=== PATIENT | male | born 1930 | race Caucasian/White ===

== ENCOUNTER 2016-11-18 11:26 | Inpatient (IN) | payer OTHER ==
[~2016-11-18] VITALS: Ht 190.5 cm; Wt 112.8 kg
--- NOTE | ~2016-11-18 | S ---
[facility] [place] [address] SURGICAL PATH RPT PROCEDURE Name: MARIO HOOVER Room #: 203-P ADM IN M.R.#: [id number] Admission: 11/18/16 Date of : 32 Discharge: Report #: [id number] Path Case #: [id number] PATHOLOGY REPORT COLLECTION DATE: 11/23/2016 RECEIVED DATE: 11/23/2016 SUBMITTING PHYS: Dr. Matt Weaver OTHER PHYS: Dr. Deepak Jacobson SPECIMEN(S) RECEIVED: A.Tissue from decubitus ulcer - sacral wound * * * * * * * * * * * * FINAL DIAGNOSIS: Tissue from left buttock decubitus ulcer sacral wound, debridement: - Ulceration as well as gangrenous necrosis of skin. - Marked acute inflammation extending into underlying subcutaneous tissue associated with necrosis. (IUV:csd; d/t: 11/24/2016) PATHOLOGIST: Neisha Cordova M.D. REPORT ELECTRONICALLY SIGNED BY: Neisha Cordova M.D. DATE/TIME: 11/24/2016 15:36 * * * * * * * * * * * * GROSS PATHOLOGY: The specimen is received in formalin, labeled "Mario Hoover and tissue from L buttock decubitus." Received is a 14.3 x 7.7 x 2.8 cm aggregate of blood-tinged, pink-delgadillo to delgadillo-brown, lobulated, and necrotic appearing adipose soft tissue. The largest piece displays an 8.2 x 6.7 cm overlying skin ellipse and a 3.5 x 2.7 cm red-delgadillo ulcer-like lesion. Car Starter sections to include the skin and ulcer-like lesion are submitted cassette A1. (TTL; 11/23/2016) CLINICAL HISTORY: Sacral wound INITIAL CPT CODE(S): A; 46546 Professional services performed by [facility] at [facility] [address] [facility] [place] [address] Technical services performed by [facility] at [address] [place] [address] [address] [place] [address] SURGICAL PATH RPT PROCEDURE Name: MARIO HOVOER Room #: 203-P ADM IN M.R.#: [id number] Admission: 11/18/16 Date of : 31 Discharge: Report #: [id number] Path Case #: [id number] [place] [address]. [facility] [address] [place] [address] PHONE: [phone] DIRECTOR: Po Beach M.D. * * * END OF REPORT * * *
--- NOTE | ~2016-11-18 | H ---
[facility] [place] [address] HISTORY AND PHYSICAL Name: HOOVERMARIO Room #: 203-P ADM IN M.R.#: [id number] Admission: 11/18/16 Attend Phys: Deepak Jacobson MD Discharge: Date of : 31 Report #: [id number] THIS REPORT FOR: //name// CC: OSEI physician/PCP Deepak Jacobson DATE OF SERVICE: 11/18/2016 CHIEF COMPLAINT: Persistent pneumothorax. HISTORY OF PRESENT ILLNESS: He is an 86-year-old male transferred from [facility]. The patient was admitted there initially a few days ago, he had an episode of fall and came to the Emergency Room and admitted. He had an abscess which was I and D'd by General Surgery at the [facility] on the left buttock area and had a wound in there and he also has known history of congestive heart failure, EF is 40-45%. Was diuresed during this hospitalization at the [facility]. He had a thoracentesis which is complicated by pneumothorax, had a chest tube placed on the left side. He continued to have a persistent pneumothorax. They did not have any cardiothoracic surgery available there, so the patient was transferred to [facility]. I have reviewed the record from [facility]. He had multiple cardiac issues, but no cancer nor anything of that. PAST MEDICAL HISTORY: Known history of CHF. His known EF is 40-45%. He had permanent AFib, contusion of the left hip, had a fall, pleural effusion due to CHF and had weakness, generalized and CHF, known history of EF 40-45%, hypertension versus pneumothorax now. He had a significant congestive heart failure, pleural effusion, thoracentesis in the past. Question of occlusive coronary artery disease. He had a history of permanent AFib, no CVA and had a history of pacemaker. SOCIAL HISTORY: He denies smoking, alcohol or drugs. FAMILY HISTORY: His daughter is by the bedside. He came from [place]. Denied any significant family history. SOCIAL HISTORY: Never smoker, no alcohol, no drugs or anything of that. REVIEW OF SYSTEMS: Currently, he denied any chest pain, shortness of breath. He is on a room air, sat has been like 92%. He is very weak, but no change in mental status. No fever. Chest x-ray, the last one was could not really get that information on this big stack of papers, but does report he has a persistent pneumothorax and had a chest tube in place on the left side. LABORATORY DATA: The last one was 11/08/2016 documented H and H 11.2 and 35.1, platelets 176. Sodium 143, potassium 4.3, chloride 105, bicarbonate 34, [address] [address] HISTORY AND PHYSICAL Name: MARIO HOOVER Room #: 203-P [facility] IN M.R.#: [id number] Admission: 11/18/16 Attend Phys: Deepak Jacobson MD Discharge: Date of : 31 Report #: [id number] BUN 25, creatinine 1.0. Glucose 109. Labs I am trying to save was 11/17/2016. Therefore, labs one I could get in November hemoglobin is 10.4, hematocrit 34.6. Electrolytes are all normal. This were yesterday labs and he had a chest x-ray which still has a left-sided pneumothorax, status post chest tube placement. PHYSICAL EXAMINATION: VITAL SIGNS: What he has here right now, temperature, he is afebrile, pulse 72, respiratory 18, blood pressure 125/36, O2 sat 96 from the son. He is on room air. GENERAL: He does look in distress, answering questions, very weak, lying on the bed. HEENT: Pupils are reactive to light. Extraocular muscles intact. Mucous membrane looks fine. 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 NECK: Supple. HEART: I do not really see much JVD anything other than. CHEST: Bilaterally coarse and certainly decreased breath sounds. CARDIOVASCULAR: S1, S2. ABDOMEN: Soft, obese, bowel sounds present. EXTREMITIES: I would say that he does have at least 2+ edema. On the skin area, left hip area, he had quite a bit of bruising, swelling and genital area. He does have at least 2-3+ pitting edema. On the back sacral area, there is a wound at least about 2 x 2 inches, which has I and D done in the [facility]. He does have a chest tube placement on left side there and there attached to that. LABS: As described above. ASSESSMENT AND PLAN: 1. He has persistent pneumothorax that is why he was transferred here. Cardiothoracic surgery consulted. I repeat the labs, chest x-ray and PT/INR all those again here since I could not find the labs for today. Those were done yesterday. 2. Contusion of the left hip, no fracture is stable, has a lot of bruises. 3. Hematuria, do not see that when he had his Rowley in place. 4. Pleural effusion, acute. He has known history of congestive heart failure, ejection fraction is 45-50%. He is on FOREST and beta kevin. 5. Hypertension. This is stable. 6. Sacral decubitus and he has incision and drainage done on 11/16/2016. 7. Debility, weakness, frequent falls. PLAN: We will keep in CCU and follow up all the labs. Chest x-ray, cardiothoracic surgery, can consider diuretics. A repeated chest x-ray and Cardiothoracic Surgery consulted for persistent pneumothorax, questionable pneumonia doubted, clinically does not look like pneumonia picture, but he was not on antibiotics mainly pictures complicated of CHF, which is complicated by [facility] [address] [place] [address] HISTORY AND PHYSICAL Name: MARIO HOOVER Room #: 203-P ADM IN [facility]#: [id number] Admission: 11/18/16 Attend Phys: Deepak Jacobson MD Discharge: Date of : 31 Report #: [id number] pneumothorax. He will be in the hospital certainly more than 2 days. We will keep him inpatient, see the orders and notes for further plan in detail of management. <ELECTRONICALLY SIGNED> By: Nathanael Feliz MD 11/18/16 1755 [id number] 1553 Nathanael Feliz MD /nt
--- NOTE | ~2016-11-18 | O ---
[facility] [place] [address] OPERATIVE REPORT Name: HOOVERMARIO Room #: 203-P [facility] IN M.R.#: [id number] Admission: 11/18/16 Attend Phys: Deepak Jacobson MD Discharge: Date of : 31 Report #: [id number] THIS REPORT FOR: //name// CC: OSEI physician/PCP Deepak Jacobson DATE OF SERVICE: 11/23/2016 PREOPERATIVE DIAGNOSES: 1. Left gluteal unstageable decubitus ulcer. 2. Congestive heart failure. 3. Chronic atrial fibrillation. 4. Slight dementia. POSTOPERATIVE DIAGNOSES: 1. 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 2. Congestive heart failure. 3. Chronic atrial fibrillation. 4. Slight dementia. PROCEDURE PERFORMED: Excisional debridement of skin, subcutaneous tissue, and muscle of an infected left gluteal decubitus wound ultimately measuring 11 x 9.5 cm in dimension (104.5 square cm). Preoperative wound measurements were 4 x 4 cm in dimension with significant undermining circumferentially and overt necrotic tissue that was malodorous in the bed of the wound. SURGEON: Matt Weaver M.D. DIRECTOR OF RESEARCH CENTER: MOISES Encarnacion ANESTHESIA: General endotracheal anesthesia. ESTIMATED BLOOD LOSS: Minimal (less than 20 mL). COMPLICATIONS: None appreciated. SPECIMENS: All excised tissue to pathology and microbiology. INDICATIONS: The patient is an 86-year-old male who sustained a fall and developed a large hematoma to the left gluteal area. This turned into an abscess for which he underwent an incision and drainage at an outside hospital, but was also found to have a pneumothorax that required chest tube placement and as such, he was transitioned to [facility] for higher level of care. Over time, the patient has had progression of foul-smelling drainage to his open left gluteal wound with significant undermining circumferentially and necessitates excisional debridement back to healthy tissue throughout to allow [facility] [address] [place] [address] OPERATIVE REPORT Name: MARIO HOOVER Room #: 203-P ADM IN ..#: [id number] Admission: 11/18/16 Attend Phys: Deepak Jacobson MD Discharge: Date of : 31 Report #: [id number] for some potential for proper wound healing. DESCRIPTION OF PROCEDURE: After explaining the risks, benefits and alternatives of the procedure and obtaining consent, the patient was brought to the operating room and placed supine on his hospital bed. After conducting a thorough timeout procedure verifying correct patient and procedure, the patient was given general endotracheal anesthesia. Once adequate anesthesia was attained, he was positioned on the operating room table in the prone position with all pressure points appropriately padded. The patient's wound was then prepped and draped in standard surgical sterile fashion. Electrocautery was used to circumferentially debride skin, subcutaneous tissue and muscle from the periphery of the wound, carried down into the bed of the wound. This was carried as far as possible until I arrived upon healthy vascularized tissue throughout the entirety of the wound. All excised tissue was passed off the field as specimen. There was no evidence of bony exposure whatsoever. Once all of the necrotic tissue and fibrinous slough was removed we were left with healthy gluteus muscle exposed in the bed of the wound with healthy vascularized, noninfected tissue throughout the periphery of the wound in the subcutaneous tissues. The wound was irrigated and hemostasis was assured with electrocautery. The wound was then packed with sterile saline soaked Kerlix gauze, dressed with ABDs and Medipore tape. At the end of the procedure, all instrument, needle and sponge counts were correct. The patient tolerated the procedure without incident, was awakened in the operating room and transitioned to the recovery room in stable condition with no apparent complications. <ELECTRONICALLY SIGNED> By: Matt Weaver MD, FACS 11/24/16 0732 2224 [id number] Matt Weaver MD, FACS /nt
--- NOTE | ~2016-11-18 | HC ---
[facility] [place] [address] CONSULTATION Name: MARIO HOOVER Room #: 203-P ADM IN M.R.#: [id number] Admission: 11/18/16 Attend Phys: Deepak Jacobson MD Discharge: Date of : 31 Report #: [id number] THIS REPORT FOR: //name// CC: FAM physician/PCP Deepak Jacobson DATE OF SERVICE: 11/22/2016 REFERRING PROVIDER: Jones Corona MD REASON FOR CONSULTATION: Sacral gluteal wound. HISTORY OF PRESENT ILLNESS: The patient is an 86-year-old male who has been admitted to [facility] after a recent hospitalization at [facility] where he was admitted secondary to sustaining a fall where he developed a large hematoma in the left gluteal area. Unfortunately, this developed into an abscess, which underwent incision and drainage by general surgery and he also had a thoracentesis complicated by a pneumothorax for which a chest tube was placed. Cardiothoracic surgery is managing the patient's chest tube and Dr. Corona had been asked to evaluate his left sacral gluteal wound. Unfortunately, the patient's wound has had foul smelling drainage with undermining circumferentially and as such, I am asked to evaluate from a surgical standpoint for excisional debridement back to healthy tissue throughout. PAST MEDICAL HISTORY: CHF, chronic AFib, pleural effusion status post thoracentesis and chest tube placement, recent fall, and slight dementia. 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 HOME MEDICATIONS: Zofran and MiraLax. ALLERGIES: SULFA, which causes itching. FAMILY HISTORY: Reviewed and noncontributory. SOCIAL HISTORY: The patient is , does not utilize tobacco, alcohol or illicit drugs. REVIEW OF SYSTEMS: GENERAL: The patient denies nocturnal fevers or chills. HEENT: No change in vision or change in hearing. NECK: No swelling or difficulty swallowing. HEART: No chest pain or palpitations. [facility] [address] [place] [address] CONSULTATION Name: MARIO HOOVER Room #: 203-[facility] IN M.R.#: [id number] Admission: 11/18/16 Attend Phys: Deepak Jacobson MD Discharge: Date of : 31 Report #: [id number] LUNGS: No cough or shortness of breath. ABDOMEN: No nausea and no vomiting. GENITOURINARY: No dysuria or hematuria. ENDOCRINE: No polyuria or polydipsia. HEMATOLOGIC: No history of bleeding or easy bruising. EXTREMITIES: No history of weakness or limited range of motion. NEUROLOGIC: Recent history of a fall, but no other syncopal events. PSYCHIATRIC: No history of anxiety or depression. SKIN AND INTEGUMENT: No prior history of abnormal lesions or moles. PHYSICAL EXAMINATION: VITAL SIGNS: Temperature 97.2, pulse 69, respirations 24, blood pressure 122/68, he stands 6 feet 3 inches tall and weighs 251 pounds. GENERAL: Alert and oriented, in no acute distress. HEENT: Normocephalic, atraumatic. Pupils are equal, round, and reactive to light. NECK: Supple without lymphadenopathy. Trachea midline. HEART: Irregularly irregular with a 2/6 systolic ejection murmur. LUNGS: Decreased breath sounds at bases bilaterally. ABDOMEN: Soft, nontender, and nondistended. GENITOURINARY: Normal external male genitalia. EXTREMITIES: No clubbing or cyanosis. He does have 2+ edema of the bilateral lower extremities. NEUROLOGIC: Cranial nerves 2-12 are grossly intact. PSYCHIATRIC: Normal mood and affect. SKIN AND INTEGUMENT: Left sacral gluteal area shows a wound measuring approximately 4 x 4 cm with significant tunneling near circumferential with foul smelling discharge and slough throughout. LABORATORY AND X-RAY DATA: Most recent CBC showed a white blood cell count 9.1 thousand, hemoglobin 11.5, and platelets 271,000. Creatinine was 1.0. INR was 1.3. ASSESSMENT AND PLAN: An 86-year-old male with a left sacral gluteal wound with necrotic tissue and grossly purulent drainage that is in need of excisional debridement back to healthy tissue throughout. The patient does have a history of CHF, chronic atrial fibrillation as well as severe protein-calorie malnutrition with an albumin of 2.2. The patient's Coumadin will be placed on hold as his INR was less than 1.5 today and we will proceed tomorrow with excisional debridement of his wound. Risks, benefits, and alternatives of that have been discussed with the patient in great detail and he agrees to proceed as outlined. [address] [address] CONSULTATION Name: KIKOMARIO Room #: 203-P ADM IN M.R.#: [id number] Admission: 11/18/16 Attend Phys: Deepak Jacobson MD Discharge: Date of : 31 Report #: [id number] I sincerely appreciate this consult. I will follow closely and leave any further recommendations in the patient's chart as appropriate. <ELECTRONICALLY SIGNED> By: Matt Weaver MD, FACS 11/23/16 1236 1701 1946 Matt Weaver MD, FACS /nt
--- NOTE | ~2016-11-18 | HC ---
[facility] [place] [address] CONSULTATION Name: MARIO HOOVER Room #: 203-P ADM IN M.R.#: [id number] Admission: 11/18/16 Attend Phys: Deepak Jacobson MD Discharge: Date of : 31 Report #: [id number] THIS REPORT FOR: //name// CC: FAM physician/PCP Deepak Jacobson DATE OF SERVICE: 11/19/2016 WOUND CARE CONSULTATION PERSONAL PHYSICIAN: Deepak Jacobson M.D. CHIEF COMPLAINT: Lower extremity ulcers with bilateral lower extremity edema and left gluteal wound. HISTORY OF PRESENT ILLNESS: This is an 86-year-old white male who was transferred to [facility] from [facility]. The patient was admitted there after he sustained a fall a few days ago and suffered a large hematoma in his left gluteal area, which developed into an abscess, which was I and D'ed by general surgery. The patient had a thoracentesis which was complicated by pneumothorax. A chest tube was placed and because of persistence of the pneumothorax, he was transferred to [facility] for further evaluation and an evaluation by the cardiothoracic surgeon. I have been asked to assist in the wound care at this time. PAST MEDICAL HISTORY: The patient is somewhat demented and past medical history is obtained mainly from the chart and from his daughter. It is significant for congestive heart failure with an EF of 40% to 45%. The patient has chronic atrial fibrillation; pleural effusion, now status post thoracentesis and pneumothorax and a recent involvement of a left gluteal abscess, most likely secondary to his infected hematoma after a fall. CURRENT MEDICATIONS: Multiple. I reviewed with the patient medication list and does include blood thinners. DRUG ALLERGIES: None. SOCIAL HISTORY: The patient does not smoke or drink alcohol. FAMILY HISTORY: Not pertinent to current medical condition. REVIEW OF SYSTEMS: CONSTITUTIONAL: The patient denies fevers or chills. NEUROLOGIC: The patient was overall generalized weakness, but no isolated weakness in arms or legs. EYES: No complaints. [address] [address] CONSULTATION Name: MARIO HOOVER Room #: [address] [place] [address] IN M.R.#: [id number] Admission: 11/18/16 Attend Phys: Deepak Jacobson MD Discharge: Date of : 31 Report #: [id number] ENT: No complaints. CARDIAC: The patient denies chest pain or palpitations, but does have chronic lower extremity edema. RESPIRATORY: The patient has mild shortness of breath associated with cough, but no wheezes. GASTROINTESTINAL: The patient denies nausea, vomiting or abdominal pain. GENITOURINARY: The patient denies urgency or frequency. MUSCULOSKELETAL: No complaints. SKIN: The patient has chest tube in the left chest wall as well as abrasion to bilateral lower extremities and a left gluteal wound, status post I and D of an abscess. PHYSICAL EXAMINATION: VITAL SIGNS: The patient is afebrile with T-max a 36.6. GENERAL: This is an alert and oriented times 2, to person and place, but not time, elderly white male, who is in no acute distress. HEENT: Normocephalic, atraumatic. Mucous membranes are somewhat dry. Pupils are round. Sclerae white. NECK: Without masses or lymphadenopathy; otherwise supple. LUNGS: Slightly diminished breath sounds heard throughout, more diminished on the left, with chest tube placed in the left lateral flank. HEART: Irregularly irregular with a 2/6 systolic ejection murmur. ABDOMEN: Obese, soft and nontender. EXTREMITIES: The patient moves all extremities spontaneous. The patient has 2+ edema in bilateral lower extremities. There are multiple abrasions noted to the bilateral lower extremities, right greater than left. There are no signs of cellulitis to the lower extremities. Distal pulses are 1+, symmetric. Bilateral heels are intact, but have open ulcerations. There are multiple superficial scabs on his toes, which are all without signs of cellulitis or drainage. On the left gluteal region is a wound, please see wound care nurses notes for measurements, which has foul-smelling drainage. However, the wound bed itself is fairly clean and granulating. There are no signs of any further remaining hematoma or eschar. There is a significant undermining in cavity below the outside wound. There is no evidence of any exposed deeper structures, such as muscle or bone. Periwound itself is without erythema, warmth or signs of cellulitis. NEUROLOGIC: Cranial nerves 2-12 are grossly intact. Motor and sensory grossly intact. LABORATORY DATA: White count 8.9, hemoglobin 11.0. BUN 35, creatinine 0.9. Albumin low at 2.2. WOUND CARE COURSE: I spoke at length with the patient's daughter. As stated, at this time, we will start packing the wound with Dakin's moist gauze to disinfect the wound and help if in the next few days we could possibly get a wound VAC over this area to help assist in the closer of this wound. We will [address] [address] CONSULTATION Name: MARIO HOOVER Room #: 203-P [facility] IN M.R.#: [id number] Admission: 11/18/16 Attend Phys: Deepak Jacobson MD Discharge: Date of : 31 Report #: [id number] Kerlix and Tubigrips on bilateral lower extremity for control of edema. We will pain all the eschars on his feet with Betadine daily. IMPRESSION: 1. Left gluteal wound, status post incision and drainage of infected hematoma, without signs of cellulitis. 2. History of persistent left-sided pneumothorax, status post thoracentesis. 3. History of congestive heart failure. 4. Chronic atrial fibrillation. 5. Severe protein-calorie malnutrition, with albumin of 2.2. 6. Generalized debility. PLAN: Described at length as above. We will also try to maximize the patient to oral supplementation of protein for healing. We will put the patient on low air loss mattress, having turned every 2 hours. We will have the Dakin's dressing changed twice daily. I appreciate the ability to consult on this patient. We will continue to follow him. <ELECTRONICALLY SIGNED> By: Jones Corona MD 11/22/16 0806 1319 1648 Jones Corona MD /nt
--- NOTE | ~2016-11-18 | HC ---
[facility] [place] [address] CONSULTATION Name: KIKOMARIO Room #: 203-P ADM IN M.R.#: [id number] Admission: 11/18/16 Attend Phys: Deepak Jacobson MD Discharge: Date of : 31 Report #: [id number] THIS REPORT FOR: //name// CC: FAM physician/PCP Deepak Jacobson DATE OF SERVICE: 11/18/2016 ATTENDING PHYSICIAN: Dr. Norwood. HISTORY OF PRESENT ILLNESS: The patient was transferred from [facility]. The patient was initially admitted a few days ago having an episode of a fall resulting in possible rib fractures on x-ray has acute on chronic rib fractures on the left side. While at [facility], he had a thoracentesis and was complicated by pneumothorax. He had a chest tube placement on the left side, continued to be persistent. The patient arrives at [facility], had a chest x-ray done, appears to be placed very low in the left chest region. Discussed with IR for possible placement of a chest tube higher, which would communicate with pneumothorax. PAST MEDICAL HISTORY: Known for congestive heart failure with EF of 40-45%, AFib with contusion of left hip. Has had falls in the past with episode of pleural effusion secondary to CHF and generalized weakness and malnourishment. PAST SURGICAL HISTORY: Right total knee, pacemaker placement, tonsils and adenoids, lumbar surgery, varicose vein strip on the right and bilateral lens implants. SOCIAL HISTORY: The patient is , has one child. Does not smoke or drink alcohol. FAMILY HISTORY: Mother and father are both . Mother at 87 secondary to CHF. Father in his 60s of lung cancer. ALLERGIES: SULFA which causes itching. HOME MEDICATIONS: Ondansetron and MiraLax. REVIEW OF SYSTEMS: A 10-point review of systems completed. The patient denies any difficulty sleeping. Denies any headache, dizziness or hearing loss. Denies shortness of breath, dyspnea on exertion, orthopnea, wheeze or cough at this time. Denies current chest pain, jaw pain, arm pain or murmurs. The patient denies any rashes, psoriasis or eczema; however, does have hemosiderin to bilateral lower extremities secondary to venous stasis, cold feet. Denies night sweats or lack of concentration. The patient denies any nausea, vomiting, diarrhea or constipation. Denies any urinary frequency, bloody urine or painful [facility] [address] [address] CONSULTATION Name: MARIO HOOVER Room #: 203-P [facility] IN ..#: [id number] Admission: 11/18/16 Attend Phys: Deepak Jacobson MD Discharge: Date of : 31 Report #: [id number] urination. Denies any seizures or neuropathy. Denies hallucinations, depression or anxiety. The patient denies any joint pain, stiffness, swelling or leg claudication at this time. PHYSICAL EXAMINATION: VITAL SIGNS: The patient's blood pressure is 125/36, pulse of 72, respirations 18, temperature is 36.9, O2 sat 96% on room air. GENERAL: The patient is a well-developed, slightly malnourished, has normal speech and mentation. HEENT: PERRLA, is normocephalic. Gaze appearing conjugate in all positions. No evidence of nystagmus. CARDIOVASCULAR: Shows S1, S2, no murmur, gallops or thrills. LUNGS: Show decreased slightly to the left lower lobe with fine crackles. All other baker appear to be clear and equal. ABDOMEN: Soft, nontender. Bowel sounds present in all 4 quadrants. SKIN: Shows normal color. Normal turgor. Does have varicosities and hemosiderin to bilateral lower extremities. NEUROLOGIC: Cranial nerves 2-12 are examined and intact. The patient is alert and oriented x 3. LABORATORY DATA: Sodium 147, potassium is 4.7, chloride is 109, CO2 is 36, BUN is 35, creatinine 0.9. White blood cell count is 8.7, hemoglobin is 11.2, hematocrit 34.3, platelets are 254, and albumin is 2.4. ASSESSMENT: 1. Pneumothorax, left chest secondary to thoracentesis. 2. Pleural effusion secondary to congestive heart failure and a recent fall. 3. Protein-calorie malnutrition. 4. History of congestive heart failure with a 40-45% ejection fraction. PLAN: Chest x-ray done in the room. Orders sent to IR for placement of a chest tube in an area that would communicate with the pneumothorax and assessment of the previous tube and possible removal. We will follow the patient and also continue working on nutrition with the hospitalist. <ELECTRONICALLY SIGNED> By: TEJINDER Veloz 11/19/16 1303 [id number] [id number] TEJINDER Veloz /nt
--- NOTE | ~2016-11-18 | HC ---
[facility] [place] [address] CONSULTATION Name: HOOVERMARIO Room #: 203-P ADM IN M.R.#: [id number] Admission: 11/18/16 Attend Phys: Deepak Jacobson MD Discharge: Date of : 31 Report #: [id number] THIS REPORT FOR: //name// CC: OSEI physician/PCP Deepak Jacobson DATE OF SERVICE: 11/18/2016 REASON FOR CONSULTATION: History of congestive heart failure and dyspnea. HISTORY OF PRESENT ILLNESS: This is a very pleasant 86-year-old gentleman transferred from [facility] with persistent pneumothorax and pleural effusion. The patient was significantly tachypneic and had a chest tube placed in [facility] due to an abscess that was treated by general surgery in the buttocks area unrelated to his recurrent pneumothorax. Apparently, the patient does have a history of congestive heart failure and was undergoing thoracentesis, which was complicated by pneumothorax and a chest tube placed. He continued to have the pneumothorax and profound shortness of breath and was subsequently transferred for assessment. Upon evaluation here, it was found that the chest tube was not draining and once this was resolved, the patient's symptoms subsided after emptying 1400 mL of pleural fluid. He denied any recent chest symptoms, pressure at times, heaviness, orthopnea, PND, syncope, or near syncope. PAST MEDICAL HISTORY: 1. Atrial fibrillation, permanent. 2. History of congestive heart failure, by recent echocardiogram of 40-45%. 3. Hypertension. PAST SURGICAL HISTORY: 1. Thoracentesis. 2. Chest tube placement. 3. Surgical abscess excision on the buttocks area. SOCIAL HISTORY: The patient does not smoke or consume alcohol. He is . He does not follow particular exercise regimen or dietary restriction. FAMILY HISTORY: Not significant for any premature cardiovascular or neurovascular disease. . REVIEW OF SYSTEMS: Except for symptoms previously mentioned and those commensurate with comorbid state, the 10-point review of systems is negative. LABORATORY DATA: Demonstrates H and H of 11.2 and 35.1 with a platelet count of 176,000. BUN and creatinine are [address] [facility] [address] [place] [address] CONSULTATION Name: HOOVERMARIO Room #: 203-P ADM IN M.R.#: [id number] Admission: 11/18/16 Attend Phys: Deepak Jacobson MD Discharge: Date of : 31 Report #: [id number] Chest x-ray demonstrated pleural fluid prior to drainage. PHYSICAL EXAMINATION: GENERAL: Well developed white male, resting comfortably, in no acute distress. VITAL SIGNS: Done and reviewed in a chart. IMPRESSION: 1. Persistent pneumothorax and fluid. It appears it is likely secondary to technical reasons since reestablishment of an open chest tube, symptoms have resolved. 2. Hypertension. We will need to monitor closely and make sure that is stable. 3. History of congestive heart failure, but his ejection fraction in the past has been between 45-50% and recently 40-45%. We will need to monitor this and make sure that the left ventricular ejection fraction is in that range, but that can be done as an outpatient. He is clinically stable now and no need to make any further changes. 5. Sacral decubitus abscess status post I and D on 11/16/2016. <ELECTRONICALLY SIGNED> By: Reji Gonzales MD 11/19/16 0131 [id number] Reji Gonzales MD /nt
[2016-11-18 13:00] VITALS: BP 125/36
[2016-11-18 14:53] LABS: HEMATOCRIT 34.3 % (42.0-52.0); HEMOGLOBIN 11.2 gm/dL (14.0-18.0); MCHC 32.8 g/dL (28.0-37.0); MCV 100.8 fL (80.0-100.0); RBC 3.4 mil/uL (4.50-6.00); RDW 15.4 % (10.5-14.5); WBC 8.7 thou/uL (4.0-11.0)
[2016-11-18 15:06] LABS: ALBUMIN 2.4 g/dL (3.4-5.0); CALCIUM 8.7 mg/dL (8.5-10.1); CREATININE 0.9 mg/dL (0.6-1.3); POTASSIUM 4.7 mmol/L (3.5-5.1); TOTAL BILIRUBIN 1.2 mg/dL (<0.1-1.0); TOTAL PROTEIN 5.9 g/dL (6.4-8.2)
[2016-11-18 15:07] LABS: INR 1.7; PROTIME 17.2 Seconds (9.3-11.4)
[2016-11-18] MEDS ORDERED: COREG6.25 MG PO (18:23)
[2016-11-18] MEDS ORDERED: KEFLEX500 MG PO (18:23)
[2016-11-18] MEDS ORDERED: ENOXAPARIN40 MG/0.1 SUBQ (18:24)
[2016-11-18] MEDS ORDERED: VITAMIN D2000 UNIT PO (18:24)
[2016-11-18] MEDS ORDERED: LASIX 40 MG TAB40 M2 PO (18:25)
[2016-11-18] MEDS ORDERED: LISINOPRIL10 MG PO (18:25)
[2016-11-18] MEDS ORDERED: FLONASE 0.05%50 MCG NASAL (18:25)
[2016-11-18] MEDS ORDERED: CENTRUM SILVER1 EAC2 PO (18:25)
[2016-11-18] MEDS ORDERED: ZOFRAN2 MG/1 ML IV (18:26)
[2016-11-18] MEDS ORDERED: POTASSIUM20 PO (18:26)
[2016-11-18] MEDS ORDERED: FLOMAX0.4 MG PO (18:27)
[2016-11-18] MEDS ORDERED: HYTRIN 5 M5 MG/1 CAP PO (18:27)
[2016-11-18] MEDS ORDERED: COUMADIN 5 MG TA5 M1 PO (18:27)
[2016-11-18] MEDS ORDERED: BAYER CHEWABLE81 MG PO (18:28)
[2016-11-18 18:42] LABS: URINE BILIRUBIN NEGATIVE (Negative); URINE BLOOD 3+ (Negative); URINE COLOR YELLOW; URINE GLUCOSE-RANDOM* NEGATIVE (Negative); URINE KETONES NEGATIVE (Negative); URINE NITRITE NEGATIVE (Negative); URINE PROTEIN (DIPSTICK) TRACE (Negative)
[2016-11-18 18:50] LABS: BACTERIA 1-9 Few /HPF (None Seen); CASTS None Seen /LPF (None Seen); CRYSTALS None Seen /LPF (None Seen); SQUAMOUS None Seen /LPF (0-3); URINE RBC 3-10 Few /HPF (0-2); URINE WBC 0-5 Rare /HPF (0-5)
[2016-11-18 19:23] VITALS: BP 132/67
[2016-11-19 00:38] VITALS: BP 145/76
[2016-11-19 03:53] VITALS: BP 135/73
[2016-11-19 03:55] LABS: HEMATOCRIT 33.2 % (42.0-52.0); MCV 99.9 fL (80.0-100.0); PLATELET COUNT 261 thou/uL (150-400); RBC 3.32 mil/uL (4.50-6.00); RDW 14.9 % (10.5-14.5); WBC 8.9 thou/uL (4.0-11.0)
[2016-11-19 03:57] LABS: MANUAL DIFF YES
[2016-11-19 04:07] LABS: INR 1.2; PROTIME 12.8 Seconds (9.3-11.4)
[2016-11-19 04:18] LABS: ALBUMIN 2.2 g/dL (3.4-5.0); CALCIUM 8.5 mg/dL (8.5-10.1); CREATININE 0.9 mg/dL (0.6-1.3); MAGNESIUM 2.1 mg/dL (1.8-2.4); POTASSIUM 4.2 mmol/L (3.5-5.1); TOTAL BILIRUBIN 1.5 mg/dL (<0.1-1.0); TOTAL PROTEIN 5.6 g/dL (6.4-8.2)
[2016-11-19 04:25] LABS: ABSOLUTE NEUTROPHILS 6.9 thou/uL (1.4-8.2); TOTAL CELL COUNT 100
[2016-11-19 09:15] VITALS: BP 124/70
[2016-11-19 12:40] VITALS: BP 119/63
[2016-11-19 13:50] VITALS: BP 124/63
[2016-11-19 19:38] VITALS: BP 144/58
[2016-11-20 03:34] VITALS: BP 164/88
[2016-11-20 04:14] LABS: HEMATOCRIT 36.1 % (42.0-52.0); HEMOGLOBIN 12.1 gm/dL (14.0-18.0); MCHC 33.4 g/dL (28.0-37.0); RBC 3.65 mil/uL (4.50-6.00); RDW 15.2 % (10.5-14.5); WBC 10.8 thou/uL (4.0-11.0)
[2016-11-20 04:26] LABS: INR 1.2; PROTIME 12.9 Seconds (9.3-11.4)
[2016-11-20 04:37] LABS: CALCIUM 8.5 mg/dL (8.5-10.1); POTASSIUM 4.3 mmol/L (3.5-5.1)
[2016-11-20 07:36] VITALS: BP 140/72
[2016-11-20 11:53] VITALS: BP 141/75
[2016-11-20 15:13] VITALS: BP 114/63
[2016-11-20 19:18] VITALS: BP 127/58
[2016-11-21 03:09] LABS: HEMATOCRIT 35.3 % (42.0-52.0); HEMOGLOBIN 11.5 gm/dL (14.0-18.0); MCH 32.6 pg (26.0-34.0); MCHC 32.5 g/dL (28.0-37.0); MCV 100.2 fL (80.0-100.0); RBC 3.52 mil/uL (4.50-6.00); RDW 15.2 % (10.5-14.5); WBC 9.1 thou/uL (4.0-11.0)
[2016-11-21 03:15] LABS: CALCIUM 8.3 mg/dL (8.5-10.1); POTASSIUM 4.2 mmol/L (3.5-5.1)
[2016-11-21 03:18] LABS: INR 1.3; PROTIME 13.4 Seconds (9.3-11.4)
[2016-11-21 05:03] VITALS: BP 131/65
[2016-11-21 09:05] VITALS: BP 135/58
[2016-11-21 11:10] VITALS: BP 136/65
[2016-11-21 12:03] VITALS: BP 125/68
[2016-11-21 16:11] VITALS: BP 119/68
[2016-11-21 19:28] VITALS: BP 120/55
[2016-11-22 03:46] VITALS: BP 146/72
[2016-11-22 04:08] LABS: INR 1.3; PROTIME 13.5 Seconds (9.3-11.4)
[2016-11-22 08:28] VITALS: BP 144/78
[2016-11-22 12:28] VITALS: BP 122/68
[2016-11-22 17:09] VITALS: BP 145/68
[2016-11-22 19:28] VITALS: BP 156/73
[2016-11-23] VITALS (11 sets, daily range): BP systolic 16–166; BP diastolic 58–90
[2016-11-23 03:43] LABS: HEMATOCRIT 35.8 % (42.0-52.0); HEMOGLOBIN 11.9 gm/dL (14.0-18.0); MCHC 33.2 g/dL (28.0-37.0); MCV 99.5 fL (80.0-100.0); RBC 3.6 mil/uL (4.50-6.00); RDW 15.7 % (10.5-14.5); WBC 9.6 thou/uL (4.0-11.0)
[2016-11-23 03:50] LABS: INR 1.3; PROTIME 13.4 Seconds (9.3-11.4)
[2016-11-23 03:51] LABS: CALCIUM 8.3 mg/dL (8.5-10.1); POTASSIUM 3.8 mmol/L (3.5-5.1)
[2016-11-24 03:25] LABS: MCH 32.4 pg (26.0-34.0); MCHC 32.4 g/dL (28.0-37.0); MCV 100.2 fL (80.0-100.0); RBC 3.39 mil/uL (4.50-6.00); RDW 15.1 % (10.5-14.5)
[2016-11-24 03:35] LABS: CALCIUM 8.2 mg/dL (8.5-10.1); INR 1.3; POTASSIUM 4.3 mmol/L (3.5-5.1); PROTIME 13.6 Seconds (9.3-11.4)
[2016-11-24 04:36] VITALS: BP 115/74
[2016-11-24 07:05] VITALS: BP 115/58
[2016-11-24 11:30] VITALS: BP 142/78
[2016-11-24] MEDS ORDERED: DEMADEX20 MG PO (12:15)
== END 2016-11-24 15:30 | DRG 981 ==
LOC: 2N 11:26
PROVIDERS: Family Medicine; Internal Medicine; Nurse Practitioner; Surgery
PROC: 0W983ZZ Drainage of Chest Wall, Percutaneous Approach (ICD-10-PCS; principal; 2016-11-18)
PROC: 0KBP0ZZ Excision of Left Hip Muscle, Open Approach (ICD-10-PCS; 2016-11-23)
DX: J93.9 Pneumothorax, unspecified (principal); L89.154 Pressure ulcer of sacral region, stage 4; E43 Unspecified severe protein-calorie malnutrition; T85.618A Breakdown (mechanical) of other specified internal prosthetic devices, implants and grafts, initial encounter; J90 Pleural effusion, not elsewhere classified; I50.9 Heart failure, unspecified; I11.0 Hypertensive heart disease with heart failure; I48.2 Chronic atrial fibrillation; F03.90 Unspecified dementia, unspecified severity, without behavioral disturbance, psychotic disturbance, mood disturbance, and anxiety; S70.02XA Contusion of left hip, initial encounter; R31.9 Hematuria, unspecified; I49.5 Sick sinus syndrome; R29.6 Repeated falls; Y83.8 Other surgical procedures as the cause of abnormal reaction of the patient, or of later complication, without mention of misadventure at the time of the procedure; Z68.31 Body mass index [BMI] 31.0-31.9, adult; Z95.0 Presence of cardiac pacemaker; Z88.2 Allergy status to sulfonamides; Z82.49 Family history of ischemic heart disease and other diseases of the circulatory system; Z80.1 Family history of malignant neoplasm of trachea, bronchus and lung
CPT/HCPCS: 10081; 50010; 50101; 50386; 62110; 62900; 70005

== ENCOUNTER 2016-11-27 19:10 | Inpatient (IN) | payer OTHER ==
[~2016-11-27] VITALS: Ht 190.5 cm; Wt 108.0 kg
--- NOTE | ~2016-11-27 | HC ---
[facility] [place] [address] CONSULTATION Name: MARIO HOOVER Room #: 545-P ADM IN M.R.#: [id number] Admission: 11/27/16 Attend Phys: Ivone Curran MD Discharge: Date of : 31 Report #: [id number] THIS REPORT FOR: //name// CC: FAM unknown Ivone Curran DATE OF SERVICE: 11/29/2016 REFERRAL PHYSICIAN: Dr. Ivone Curran. REASON FOR CONSULTATION: Questionable pneumonia. HISTORY OF PRESENT ILLNESS: The patient in an 86-year-old white male who was brought to the Emergency Room with trouble with his wound involving his left gluteus gucci. Chest x-ray since admission suggests possible recurrent infiltrates. A pulmonary consultation was requested. The patient was most recently hospitalized on November 18, for persistent pneumothorax following a fall and this was subsequently resolved and the patient was transferred to the Rehabilitation Unit. In short summary, when he fell recently, he developed an abscess around his hematoma that required incision and drainage with antibiotics. According to the daughter while in the rehab, the buttock wound did not appear to be healing as well. Because of the concern, he was transferred to the hospital. Currently, he complains of mild dyspnea, congestion. Denies any chest pain or productive cough. There is no recent febrile illness. PAST MEDICAL HISTORY: Notable for recent fall as mentioned above, sustaining a buttock hematoma with subsequent abscess and wound, ischemic cardiomyopathy, ejection fraction of 40%-45%, history of pleural effusion, ongoing thoracentesis about a year, coronary artery disease with past history of myocardial infarction. PAST SURGICAL HISTORY: Remarkable for prior permanent pacemaker placement, right total knee replacement. ALLERGIES: SULFA, which causes pruritus. HOME MEDICATIONS: List reviewed. This would include Coreg, Keflex, vitamin D, Lovenox, Flonase, lisinopril, multivitamins, potassium supplements, Flomax, trazodone, aspirin, Coumadin, which was recently on hold. FAMILY HISTORY: Noncontributory. [facility] [address] [place] [address] CONSULTATION Name: MARIO HOOVER Room #: 545-[facility] IN .R.#: [id number] Admission: 11/27/16 Attend Phys: Ivone Curran MD Discharge: Date of : 31 Report #: [id number] SOCIAL HISTORY: He is , has a daughter who cares for him. He denies any tobacco or alcohol use. Prior to his last hospitalization, the patient was living independently at home. REVIEW OF SYSTEMS: As mentioned above is notable for weakness. Otherwise, 10-point system review negative. PHYSICAL EXAMINATION: GENERAL: He is awake, alert, in no apparent distress. VITAL SIGNS: Temperature is 98 degrees Fahrenheit, pulse is 70, respiratory rate is 19, blood pressure 119/60 mmHg, saturation is 95%. HEENT: Normocephalic, atraumatic. NECK: Supple, without any lymphadenopathy or thyromegaly. CHEST: Breath sounds are moderate over a few scattered crackles in the bases. No wheezes. CARDIOVASCULAR: Normal S1, S2. No murmurs or gallop. There is no JVD. There is no carotid bruit. Pulses are 2+/4+ bilaterally. ABDOMEN: Soft, nontender, no organomegaly or masses felt. EXTREMITIES: No cyanosis or clubbing but remarkable for trace bilateral edema. LABORATORY DATA: Chest x-ray shows mild bilateral pleural effusion, mild hazy infiltrates seen in the right lower lung field. CT abdomen and pelvis, no obvious acute intra-abdominal process other than possible early cirrhosis involving the liver, bilateral renal cysts, few nonobstructing left renal calculi, ixnihbgb-[id number]-fgaxgt degenerative lumbar spinal changes, increased stool involving the proximal colon. Electrolytes are normal except for creatinine of 1.2, potassium 3.2, . Liver function tests are grossly unremarkable other than alkaline phosphatase of 200. WBC 9700, hemoglobin is 11.5, platelets are normal. Albumin is 2.4. IMPRESSION: 1. Question of infiltrates in this 86-year-old white male. The low chest from the CT abdomen and pelvis suggest atelectasis along with mild bilateral pleural effusion. I do not think the patient has recurrent pneumonia, pneumonia is felt to be less likely. We will followup chest x-ray. 2. Buttock wound following recent falls with hematoma. Wound has been consulted. 3. Chronic atrial fibrillation, rate controlled, chronic anticoagulation has been on hold. 4. Ischemic cardiomyopathy with history of chronic systolic heart failure. 5. Pleural effusion. Apparently, the patient has a recurrent pleural effusion in the past, presumably related to heart failure. He does have agzx-py-oqgvfamb effusion on the left. Would suggest increasing diuretics. If pleural effusion worsens, I will proceed with thoracentesis. 6. Hypertension. 7. Medical directive, he is a DNR. [facility] [address] [place] [address] CONSULTATION Name: MARIO HOOVER Room #: 545-P ADM IN M.R.#: [id number] Admission: 11/27/16 Attend Phys: Ivone Curran MD Discharge: Date of : 31 Report #: [id number] RECOMMENDATION: We will followup chest x-ray, considered increasing diuretics. I think we can continue antibiotics for now. If the patient remains stable, afebrile and chest x-ray show improvement, antibiotic can be discontinued. Thank you for this consultation. <ELECTRONICALLY SIGNED> By: Roshan Clarke MD 12/01/16 1409 1641 0215 Roshan Clarke MD /nt
--- NOTE | ~2016-11-27 | H ---
[facility] [place] [address] HISTORY AND PHYSICAL Name: MARIO HOOVER Room #: 545-P ADM IN M.R.#: [id number] Admission: 11/27/16 Attend Phys: Ivone Curran MD Discharge: Date of : 31 Report #: [id number] THIS REPORT FOR: //name// CC: FAM unknown Amandeep Staton ATTENDING PHYSICIAN: Amandeep Staton MD PRIMARY CARE PHYSICIAN: . CHIEF COMPLAINT: Left gluteal wound. HISTORY OF PRESENT ILLNESS: The patient is an 86-year-old male who was recently sent to [facility] from [facility] due to nonexpanding pneumothorax. He had obtained his pneumothorax after a thoracentesis. This improved with the chest tube and eventually the chest tube was removed. He had a fall earlier in November and had developed a large hematoma as well. While he was here, he developed an abscess in that hematoma area and underwent an I and D and was treated with antibiotics. He ended up being discharged with nursing home facility on Keflex. He had been on Coumadin for AFib been on hold. He was just discharged there on November 24. He has been receiving wound care and the nurse became concerned because his wound was increasing in size and there was increasing purulence from the wound. He had a low-grade temperature of 99.2. He was sent back to [facility] for further evaluation. The patient is somewhat confused. I am not sure about his baseline, therefore he is not able to provide much history. Previous records were used. PAST MEDICAL HISTORY: Atrial fibrillation, congestive heart failure with an EF of 40-45%, hypertension, coronary artery disease with prior OK. PAST SURGICAL HISTORY: Pacemaker placement, right total knee replacement. ALLERGIES: SULFA causes itching. HOME MEDICATIONS: Carvedilol, Keflex, vitamin D, Lovenox 40 mg at bedtime, Flonase daily, lisinopril 10 mg daily, multivitamin daily, potassium 20 mEq daily, Flomax, terazosin 10 mg daily, aspirin 81 mg daily and milk of magnesia p.r.n. His Coumadin is currently on hold. SOCIAL HISTORY: The patient denies any tobacco, alcohol or drug use. He had been living alone, but is currently in a rehab facility. FAMILY HISTORY: Noncontributory. REVIEW OF SYSTEMS: This was attempted with the patient and otherwise negative unless stated in the HPI. [address] [address] HISTORY AND PHYSICAL Name: MARIO HOOVER Room #: 545-P [facility] IN [facility].#: [id number] Admission: 11/27/16 Attend Phys: Ivoen Curran MD Discharge: Date of : 31 Report #: [id number] PHYSICAL EXAMINATION: GENERAL: The patient is an alert male in no acute distress. VITAL SIGNS: Temperature is 36.9, heart rate 70, respirations 18, blood pressure is 133/80, oxygen 96% on room air. HEENT: PERRLA. Sclerae are nonicteric. Oral mucosa is pink and moist. NECK: Supple, no JVD noted. CARDIOVASCULAR: Normal S1, S2. No murmurs, rubs or gallops. RESPIRATORY: Breath sounds are clear bilaterally. He is somewhat diminished in both bases. Breathing is nonlabored. ABDOMEN: Soft, nontender, nondistended with positive bowel sounds. VASCULAR: He does have 1+ bilateral lower extremity edema with RYAN hose in place. Pedal pulses are 2+. NEUROLOGIC: The patient is alert and oriented to self only. He thought he was at home and questioned why I was in his house. He was unable to tell me the current month or year. SKIN: He does have few areas of hematoma in his left flank and buttock area as well as a large wound in the left buttock area. The wound measures 9 x 12 x 3 cm deep with purulent drainage. There really is not much surrounding erythema. LABS AND DIAGNOSTICS: WBC is 10.6, hemoglobin 13.1. Sodium 142, potassium 3.7, BUN 21, creatinine 1.0. LFTs are within normal limits except alkaline phosphatase is 235. Lipase 132. Lactate is 1.4. UA is negative nitrite, negative leukocyte esterase and rare WBCs. CT of the abdomen and pelvis shows diffuse fatty infiltrates in the liver with possible early changes of cirrhosis. There are a few bilateral renal cysts without evidence for obstruction and there are few nonobstructing left renal calculi. There are diffuse moderate to severe degenerative lumbar spinal changes. There is increased stool but there is no inflammatory process. ASSESSMENT AND PLAN: 1. Buttock wound infection. This was from a prior hematoma. His white count is normal, lactate is normal and he is afebrile. We will consult Dr. Corona for further wound care and continue Zosyn for antibiotics. 2. Recent buttock hematoma. This has been previously drained. His Coumadin has been colon hold. 3. Chronic atrial fibrillation. He is currently rate controlled. Coumadin is on hold. Continue other home medications. 4. Chronic systolic heart failure, prior ejection fraction is 40-45%. We will continue with oral Lasix as at home. 5. Hypertension. Blood pressure is stable. Continue home meds. 6. Code status: The patient is a DNR. 7. Deep venous thrombosis prophylaxis. Place sequential compression devices. [facility] [place] [address] HISTORY AND PHYSICAL Name: MARIO HOOVER Room #: 545-P ADM IN M.R.#: [id number] Admission: 11/27/16 Attend Phys: Ivone Curran MD Discharge: Date of : 31 Report #: [id number] We will continue to follow the patient closely throughout the hospitalization and make changes based on clinical status. <ELECTRONICALLY SIGNED> By: MOISES Ibarra 11/30/16 0658 0914 [id number] MOISES Ibarra /nt
--- NOTE | ~2016-11-27 | HC ---
[facility] [place] [address] CONSULTATION Name: MARIO HOOVER Room #: 545-P ADM IN M.R.#: [id number] Admission: 11/27/16 Attend Phys: Amandeep Staton MD Discharge: Date of : 31 Report #: [id number] THIS REPORT FOR: //name// CC: FAM unknown Amandeep Staton DATE OF SERVICE: 11/28/2016 WOUND CARE CONSULTATION REASON FOR CONSULTATION: Nonhealing surgical wound of sacral area, status post debridement and hematoma evacuation. HISTORY: The patient is an 86-year-old gentleman previously treated at [facility] after he had a fall earlier in November and laid on the floor at home in the bathroom for about 6 hours. He underwent surgical incision and drainage and debridement of the sacral area where an abscess had developed and a hematoma. In speaking with the patient's daughter about his history, he did lay on the floor for a long period of time. It is possible that this represented a combination of a hematoma and a pressure ulcer from lying on it for prolonged immobility. The patient was discharged to a halfway facility on 11/24/2016. Wound care nurse at the outside facility was concerned about the appearance of the wound with some drainage from the wound. The patient was therefore brought back to [facility] for continued wound care. The patient states that he has been quite immobile now for several months. SOCIAL HISTORY: The patient is . He had been living at home. He has been very immobile lately. ALLERGIES: SULFA. HOME MEDICATIONS: Include carvedilol, Keflex, vitamin D, Lovenox, Flonase, lisinopril, multivitamins, potassium, Flomax, terazosin, aspirin, milk of magnesia. The patient had been on Coumadin. PAST SURGICAL HISTORY: Right total knee replacement, pacemaker placement, surgical debridement of sacral area during last hospitalization. PAST MEDICAL HISTORY: Includes atrial fibrillation, congestive heart failure, ejection fraction of 40-45%, hypertension, coronary artery disease, history of previous myocardial infarction.. PHYSICAL EXAMINATION: GENERAL: An elderly male who is obese. The patient is conversant and a good historian. VITAL SIGNS: Temperature 36.9, pulse 71, respirations 18, blood pressure [address] [address] CONSULTATION Name: MARIO HOOVER Room #: 545-P [facility] IN M.R.#: [id number] Admission: 11/27/16 Attend Phys: Amandeep Staton MD Discharge: Date of : 31 Report #: [id number] 150/81. Mucous membranes are moist. NECK: Supple. CHEST: With decreased breath sounds bilaterally. ABDOMEN: Obese. The patient appears to have a healed midline abdominal incision scar. EXTREMITIES: There are no lower extremity wounds. Examination of the patient's back shows a large approximately 10 cm x 10 cm open wound of the sacral area. This has the clinical appearance of a stage 4 sacral pressure sore post-debridement. There is some mild erythema at the wound edges. The depths of the wound were explored. There is no tunneling, no purulence, minimal exudate at the wound base, which is granulating. No clinical suspicion of residual abscess or deep necrosis. IMPRESSION: 1. Obesity. 2. Prolonged immobility. 3. Nonhealing surgical wound of the sacral area, status post hematoma evacuation, incision and drainage and debridement. 4. Clinically, this wound appears to may actually been a pressure ulcer from the patient's prolonged period of immobility. PLAN: Quarter strength Dakin's packing to the wound twice daily. Wound cultures done. We will have Arlin Callahan, wound care nurse, to inspect the wound, which may be suitable for reinstitution of negative pressure wound therapy with a wound VAC. Given the patient's level of immobility, inability to walk, the nature of the wound, the patient may benefit from a diverting colostomy to facilitate wound care. I did bring this up with the daughter that can be discussed further. Based on the appearance of the wound today, I do not see any evidence of recurrent abscess, deep infection or necrosis and I think the wound will respond to good local wound care and the wound VAC will be reinstituted soon. Dr. Corona and wound care nurse, Arlin Callahan will evaluate the wound tomorrow. By: 1230 0105 Bruce Bright MD /nt
[~2016-11-27 19:10] MED LIST: BAYER CHEWABLE81 MG PO; CENTRUM SILVER1 EAC2 PO; COREG6.25 MG PO; COUMADIN 5 MG TA5 M1 PO; DEMADEX20 MG PO; ENOXAPARIN40 MG/0.1 SUBQ; FLOMAX0.4 MG PO; FLONASE 0.05%50 MCG NASAL; HYTRIN 5 M5 MG/1 CAP PO; KEFLEX500 MG PO; LASIX 40 MG TAB40 M2 PO; LISINOPRIL10 MG PO; POTASSIUM20 PO; VITAMIN D2000 UNIT PO; ZOFRAN2 MG/1 ML IV
[2016-11-27 19:11] VITALS: BP 133/80
[2016-11-27] MEDS ORDERED: MILK OF MA400 MG/5 M PO (19:33)
[2016-11-27 20:14] LABS: HEMATOCRIT 39.5 % (42.0-52.0); HEMOGLOBIN 13.1 gm/dL (14.0-18.0); MCH 32.6 pg (26.0-34.0); MCHC 33.2 g/dL (28.0-37.0); MCV 98.4 fL (80.0-100.0); PLATELET COUNT 237 thou/uL (150-400); RBC 4.01 mil/uL (4.50-6.00); RDW 15.5 % (10.5-14.5); WBC 10.6 thou/uL (4.0-11.0)
[2016-11-27 20:15] LABS: MANUAL DIFF YES
[2016-11-27 20:20] LABS: CALCIUM 8.3 mg/dL (8.5-10.1); POTASSIUM 3.7 mmol/L (3.5-5.1)
[2016-11-27 20:30] LABS: ALBUMIN 2.6 g/dL (3.4-5.0); DIRECT BILIRUBIN 0.4 mg/dL (<0.1-0.3); TOTAL BILIRUBIN 1.1 mg/dL (<0.1-1.0); TOTAL PROTEIN 6.1 g/dL (6.4-8.2)
[2016-11-27 20:39] LABS: ABSOLUTE NEUTROPHILS 8.5 thou/uL (1.4-8.2); PLATELET ESTIMATE NORMAL; TOTAL CELL COUNT 100
[2016-11-27 21:11] LABS: URINE BILIRUBIN NEGATIVE (Negative); URINE BLOOD 2+ (Negative); URINE COLOR YELLOW; URINE GLUCOSE-RANDOM* NEGATIVE (Negative); URINE KETONES NEGATIVE (Negative); URINE NITRITE NEGATIVE (Negative); URINE PROTEIN (DIPSTICK) NEGATIVE (Negative)
[2016-11-27 21:22] LABS: CASTS None Seen /LPF (None Seen); CRYSTALS None Seen /LPF (None Seen); SQUAMOUS None Seen /LPF (0-3)
[2016-11-27 21:24] LABS: BACTERIA None Seen /HPF (None Seen); URINE WBC 0-5 Rare /HPF (0-5)
[2016-11-28 00:14] VITALS: BP 150/78
[2016-11-28 03:38] LABS: HEMOGLOBIN 12.1 gm/dL (14.0-18.0); MCH 32.7 pg (26.0-34.0); MCHC 32.8 g/dL (28.0-37.0); MCV 99.7 fL (80.0-100.0); RBC 3.71 mil/uL (4.50-6.00); RDW 16.1 % (10.5-14.5); WBC 10.1 thou/uL (4.0-11.0)
[2016-11-28 03:58] LABS: ALBUMIN 2.4 g/dL (3.4-5.0); CALCIUM 8.2 mg/dL (8.5-10.1); CREATININE 0.9 mg/dL (0.6-1.3); TOTAL BILIRUBIN 1.3 mg/dL (<0.1-1.0); TOTAL PROTEIN 5.6 g/dL (6.4-8.2)
[2016-11-28 04:44] VITALS: BP 150/81
[2016-11-28 17:00] VITALS: BP 138/73
[2016-11-29 03:29] VITALS: BP 138/71
[2016-11-29 04:33] LABS: HEMATOCRIT 34.2 % (42.0-52.0); HEMOGLOBIN 11.5 gm/dL (14.0-18.0); MCH 33.1 pg (26.0-34.0); MCHC 33.8 g/dL (28.0-37.0); RBC 3.49 mil/uL (4.50-6.00); RDW 15.7 % (10.5-14.5); WBC 9.7 thou/uL (4.0-11.0)
[2016-11-29 04:46] LABS: CALCIUM 8.3 mg/dL (8.5-10.1); CREATININE 1.2 mg/dL (0.6-1.3); POTASSIUM 3.2 mmol/L (3.5-5.1)
[2016-11-29 15:46] VITALS: BP 119/68
[2016-11-29 19:15] VITALS: BP 116/67
[2016-11-30 04:00] VITALS: BP 135/85
[2016-11-30 06:07] LABS: HEMATOCRIT 38.8 % (42.0-52.0); HEMOGLOBIN 12.7 gm/dL (14.0-18.0); MCH 32.6 pg (26.0-34.0); MCHC 32.7 g/dL (28.0-37.0); MCV 99.8 fL (80.0-100.0); RBC 3.88 mil/uL (4.50-6.00); RDW 15.4 % (10.5-14.5); WBC 10.6 thou/uL (4.0-11.0)
[2016-11-30 06:21] LABS: CALCIUM 8.4 mg/dL (8.5-10.1); CREATININE 1.2 mg/dL (0.6-1.3); POTASSIUM 3.7 mmol/L (3.5-5.1)
[2016-11-30 07:25] VITALS: BP 144/78
[2016-11-30 16:22] VITALS: BP 132/79
[2016-11-30 20:00] VITALS: BP 129/76
[2016-12-01 04:00] VITALS: BP 145/61
[2016-12-01 04:11] LABS: MCHC 33.4 g/dL (28.0-37.0); MCV 98.7 fL (80.0-100.0); RBC 3.64 mil/uL (4.50-6.00); RDW 15.5 % (10.5-14.5); WBC 9.5 thou/uL (4.0-11.0)
[2016-12-01 04:20] LABS: CALCIUM 8.3 mg/dL (8.5-10.1); CREATININE 1.3 mg/dL (0.6-1.3); POTASSIUM 3.6 mmol/L (3.5-5.1)
[2016-12-01 07:29] VITALS: BP 144/82
[2016-12-01 16:39] VITALS: BP 136/70
[2016-12-01 20:00] VITALS: BP 153/75
[2016-12-02 04:00] VITALS: BP 152/83
[2016-12-02 07:45] VITALS: BP 134/88
[2016-12-02 16:00] VITALS: BP 147/82
[2016-12-02 20:15] VITALS: BP 140/68
[2016-12-03 03:45] VITALS: BP 158/88
[2016-12-03 08:22] VITALS: BP 140/90
[2016-12-03] MEDS ORDERED: AUGMENTIN 875-1 EACH PO (10:54)
[2016-12-03] MEDS ORDERED: COLACE 100 MG100 MG PO (10:54)
== END 2016-12-03 19:00 | DRG 602 ==
LOC: ER 19:10 → EROBS 22:33 → 5S 22:33
PROVIDERS: Family Medicine; Internal Medicine Pulmonary Disease; Nurse Practitioner
DX: L02.31 Cutaneous abscess of buttock (principal); E43 Unspecified severe protein-calorie malnutrition; J18.9 Pneumonia, unspecified organism; J98.11 Atelectasis; I50.22 Chronic systolic (congestive) heart failure; J90 Pleural effusion, not elsewhere classified; L08.9 Local infection of the skin and subcutaneous tissue, unspecified; I11.0 Hypertensive heart disease with heart failure; Z96.651 Presence of right artificial knee joint; I25.10 Atherosclerotic heart disease of native coronary artery without angina pectoris; E66.9 Obesity, unspecified; I25.5 Ischemic cardiomyopathy; F03.90 Unspecified dementia, unspecified severity, without behavioral disturbance, psychotic disturbance, mood disturbance, and anxiety; I48.2 Chronic atrial fibrillation; Z96.89 Presence of other specified functional implants; Z79.82 Long term (current) use of aspirin; Z79.899 Other long term (current) drug therapy; I25.2 Old myocardial infarction; Z88.2 Allergy status to sulfonamides
CPT/HCPCS: 10089

== ENCOUNTER 2016-12-16 11:37 | Inpatient (IN) | payer OTHER ==
[~2016-12-16] VITALS: Ht 190.5 cm; Wt 106.0 kg
--- NOTE | ~2016-12-16 | EKG ---
[place] [address] [facility] [place] [address] ELECTROCARDIOGRAM REPORT Name: MARIO HOOVER Room #: 420-P ADM IN M.R.#: [id number] Admission: 12/16/16 Attend Phys: Simran Foss Discharge: Date of : 32 Report #: [id number] THIS REPORT FOR: //name// [facility] ED Test Date: 2016-12-16 Test Time: 14:00:16 Pat Name: MARIO HOOVER Department: Room: 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: Evi RUANO : 1930 Requested By: Geovany Dudley Order Number: [id number] MD: Elder Schneider Measurements Intervals Cisco Rate: 70 P: 0 [place]: 32 QRS: -59 QRSD: 192 T: 136 QT: 495 QTc: 535 Interpretive Statements Ventricular pacing No further analysis attempted due to paced rhythm Baseline wander in lead(s) V3 No previous ECG available for comparison Electronically Signed On 12-17-2016 8:38:41 CDT by Elder Schneider [email or web address] <ELECTRONICALLY SIGNED> By: Elder Schneider MD, [facility] 12/17/16 0838 1400 1400 Elder Schneider MD, FACC /EPI
--- NOTE | ~2016-12-16 | H ---
[facility] [place] [address] HISTORY AND PHYSICAL Name: MARIO HOOVER Room #: 420-P [facility] IN M.R.#: [id number] Admission: 12/16/16 Attend Phys: Simran Foss Discharge: 12/18/16 Date of : 32 Report #: [id number] THIS REPORT FOR: //name// CC: FAM unknown Simran Foss DATE OF SERVICE: 12/17/2016 This is a wound care history and physical on a previously established patient but new hospital visit. DATE OF SERVICE: 12/17/2016. CHIEF COMPLAINT: Left gluteal wound. HISTORY OF PRESENT ILLNESS: This is an 86-year-old white male who is currently admitted for melena from his care facility. We have been following this patient while he was recently hospitalized for a surgical wound to his left gluteal region, status post infected hematoma with evacuation. The patient had a wound VAC in place while at the facility up until 3 days ago when the nurses felt that the wound did not look good enough for a wound VAC, and then, they noted the patient had 1 episode of melena and was sent to the hospital to be reevaluated. The patient denies any pain associated with the wound, and there are no other associated complaints at this time. PAST MEDICAL HISTORY: History of congestive heart failure, atrial fibrillation, hypertension, previous myocardial infarction, pacemaker placement, and the left gluteal wound, status post hematoma evacuation. CURRENT MEDICATIONS: Multiple. The patient was on Coumadin, this has been held. DRUG ALLERGIES: SULFA. SOCIAL HISTORY: The patient resides in a care facility. Does not smoke or drink alcohol. FAMILY HISTORY: Not pertinent to current medical condition. REVIEW OF SYSTEMS: CONSTITUTIONAL: The patient denies fevers or chills. NEUROLOGIC: The patient overall has generalized weakness, but no isolated weakness in arms or legs. EYES: No complaints. ENT: No complaints. CARDIAC: The patient denies chest pain, palpitations, peripheral edema. [facility] [address] [place] [address] HISTORY AND PHYSICAL Name: MARIO HOOVER Room #: 420-P [facility] IN [facility].#: [id number] Admission: 12/16/16 Attend Phys: Simran Foss Discharge: 12/18/16 Date of : 32 Report #: [id number] RESPIRATORY: The patient denies shortness breath, cough, wheezes. GASTROINTESTINAL: The patient had an episode of melena x 1, but denies any nausea, vomiting or hematemesis. GENITOURINARY: The patient denies urgency or frequency. MUSCULOSKELETAL: No complaints. SKIN: There is a left gluteal wound. PHYSICAL EXAMINATION: VITAL SIGNS: Stable. The patient is afebrile. GENERAL: Alert and oriented x 3, elderly white male who is in no acute distress. HEENT: Normocephalic, atraumatic. Mucous membranes are slightly dry. Pupils are round. Sclerae are white. NECK: Supple, nontender. LUNGS: Clear. HEART: Irregularly irregular, without murmur. ABDOMEN: Obese, soft, otherwise nontender. SKIN: Evaluation of left gluteal wound reveals a wound which is clean and granulating without significant tunneling, tracking or undermining. There is mild amount of serosanguineous drainage without odor. Perianal wound is intact without erythema, warmth or signs of cellulitis. There is no evidence of any involvement of the deeper structures. RECTAL: Deferred. EXTREMITIES: The patient moves all extremities without difficulty. Bilateral heels are intact. NEUROLOGIC: Cranial nerves 2-12 are grossly intact. Motor and sensory grossly intact. LABORATORY VALUES: White count 8.6, hemoglobin 12.3. Albumin is moderately low at 2.5. IMPRESSION: 1. Left gluteal wound status post evacuation of hematoma, overall stable/improved. 2. History of melena. 3. History of congestive heart failure. 4. Protein-calorie malnutrition - moderate. PLAN: At this time, we will resume the patient's wound VAC therapy while he is here in the hospital with hopes that this will be continued once he leaves the hospital back to his care facility. We will make sure we maximize the patient's [address] [address] HISTORY AND PHYSICAL Name: KIKOMARIO Room #: 420-P [facility] IN M.R.#: [id number] Admission: 12/16/16 Attend Phys: Simran Foss Discharge: 12/18/16 Date of : 32 Report #: [id number] oral protein supplementation for healing. We will continue to follow the patient while he is here. By: [id number] Jones Corona MD /nt
[~2016-12-16 11:37] MED LIST changes: +AUGMENTIN 875-1 EACH PO; +COLACE 100 MG100 MG PO; +MILK OF MA400 MG/5 M PO
[2016-12-16 11:38] VITALS: BP 117/65
[2016-12-16 13:50] LABS: HEMATOCRIT 37.8 % (42.0-52.0); HEMOGLOBIN 12.3 gm/dL (14.0-18.0); MANUAL DIFF YES; MCH 32.7 pg (26.0-34.0); MCHC 32.6 g/dL (28.0-37.0); MCV 100.5 fL (80.0-100.0); PLATELET COUNT 128 thou/uL (150-400); RBC 3.77 mil/uL (4.50-6.00); RDW 16.6 % (10.5-14.5); WBC 8.6 thou/uL (4.0-11.0)
[2016-12-16 13:59] LABS: URINE BILIRUBIN NEGATIVE (Negative); URINE BLOOD 3+ (Negative); URINE COLOR YELLOW; URINE GLUCOSE-RANDOM* NEGATIVE (Negative); URINE KETONES NEGATIVE (Negative); URINE NITRITE NEGATIVE (Negative); URINE PROTEIN (DIPSTICK) NEGATIVE (Negative)
[2016-12-16 14:00] LABS: INR 1.2; PROTIME 12.9 Seconds (9.3-11.4)
[2016-12-16 14:04] LABS: SQUAMOUS None Seen /LPF (0-3); URINE RBC >20 Many /HPF (0-2)
[2016-12-16 14:04] LABS: ANION GAP 5 mmol/L (7-16); BUN 28 mg/dL (7-18); CALCIUM 8.3 mg/dL (8.5-10.1); CHLORIDE 103 mmol/L (98-107); CO2 36 mmol/L (21-32); GLUCOSE 118 mg/dL (74-106); NT-PRO BRAIN NAT PEPTIDE 3780 pg/mL (<300); SODIUM 144 mmol/L (136-145); TROPONIN-I < 0.04 ng/mL (<0.04-0.07)
[2016-12-16 14:05] LABS: BACTERIA None Seen /HPF (None Seen); CASTS None Seen /LPF (None Seen); CRYSTALS None Seen /LPF (None Seen); URINE WBC 0-5 Rare /HPF (0-5)
[2016-12-16 14:05] LABS: POTASSIUM 2.9 mmol/L (3.5-5.1)
[2016-12-16 14:21] LABS: ABSOLUTE NEUTROPHILS 7.1 thou/uL (1.4-8.2); ANISOCYTOSIS 1+; TOTAL CELL COUNT 100
[2016-12-16 17:13] VITALS: BP 126/61
[2016-12-16 17:45] VITALS: BP 158/89
[2016-12-16 20:00] VITALS: BP 155/94
[2016-12-17 03:51] LABS: HEMATOCRIT 35.7 % (42.0-52.0); HEMOGLOBIN 11.9 gm/dL (14.0-18.0); MCH 33.4 pg (26.0-34.0); MCHC 33.2 g/dL (28.0-37.0); MCV 100.4 fL (80.0-100.0); RBC 3.55 mil/uL (4.50-6.00); RDW 16.5 % (10.5-14.5); WBC 7.2 thou/uL (4.0-11.0)
[2016-12-17 04:11] LABS: ALBUMIN 2.5 g/dL (3.4-5.0); CALCIUM 7.9 mg/dL (8.5-10.1); PHOSPHORUS 3.4 mg/dL (2.5-4.9); POTASSIUM 3.2 mmol/L (3.5-5.1)
[2016-12-17 04:30] VITALS: BP 150/93
[2016-12-17 07:55] VITALS: BP 151/96
[2016-12-17 16:00] VITALS: BP 154/77
[2016-12-17 20:15] VITALS: BP 144/84
[2016-12-18 03:20] VITALS: BP 152/86
[2016-12-18 05:45] LABS: HEMATOCRIT 38.1 % (42.0-52.0); HEMOGLOBIN 12.5 gm/dL (14.0-18.0); MCH 32.8 pg (26.0-34.0); MCHC 32.8 g/dL (28.0-37.0); MCV 100.2 fL (80.0-100.0); RBC 3.8 mil/uL (4.50-6.00); RDW 16.6 % (10.5-14.5); WBC 7.3 thou/uL (4.0-11.0)
[2016-12-18 07:13] VITALS: BP 161/83
== END 2016-12-18 13:00 | DRG 377 ==
LOC: ER 11:37 → EROBS 15:16 → 4E 15:16
PROVIDERS: Emergency Medicine; Hospitalist
DX: K92.2 Gastrointestinal hemorrhage, unspecified (principal); G93.41 Metabolic encephalopathy; E46 Unspecified protein-calorie malnutrition; I11.0 Hypertensive heart disease with heart failure; I50.9 Heart failure, unspecified; I48.91 Unspecified atrial fibrillation; Z96.651 Presence of right artificial knee joint; D64.9 Anemia, unspecified; F03.90 Unspecified dementia, unspecified severity, without behavioral disturbance, psychotic disturbance, mood disturbance, and anxiety; Z66 Do not resuscitate; L89.329 Pressure ulcer of left buttock, unspecified stage; I25.2 Old myocardial infarction; Z95.0 Presence of cardiac pacemaker; Z88.2 Allergy status to sulfonamides; Z68.29 Body mass index [BMI] 29.0-29.9, adult
CPT/HCPCS: 10084